=== PATIENT | male | born 1955 | race Asian ===

== ENCOUNTER 2017-10-16 16:55 | Inpatient (IN) | payer BC, OTHER ==
[~2017-10-16] VITALS: Ht 160 cm; Wt 63.5 kg
--- NOTE | 2017-10-16 18:12 | NUR ---
GN DISCHARGE NOTE: PT 62 Y/O MALE ADMITTED FROM [facility]150 HOLD FOR DTS,GD. PER HOLD PT OD O MEDICATIONS PT WAS DEPRESSED FOR PAST 2 MONTHS. UPON 1:1 ASSESSMENT PT A/0 X3, CALM, COOPERATIVE, DEPRESSED MOOD , UNKEPT, ADMIT SI WITH NO PLAN. PT SIGN CONTACT FOR SAFETY, DR DUMONT NOTIFIED WITH ADMITTING ORDER. VSS,BELONGING CHECKED FOR CONTRABAND WILL INDORSE TO INCOMING SHIFT RN FOR COMPLETE ADMISSION AND CONTINUATION OF CARE.
[2017-10-16] MEDS ORDERED: LOSA50TA21 PO (18:17)
[2017-10-16] MEDS ORDERED: EZET1TAB31 PO (18:17)
[2017-10-16] MEDS ORDERED: MIRT15TA7 PO (18:17)
[2017-10-16] MEDS ORDERED: ESCI10TA PO (18:17)
[2017-10-16] MEDS ORDERED: SITA100T PO (18:17)
[2017-10-16] MEDS ORDERED: MIRT30TA7 PO (18:17)
[2017-10-16] MEDS ORDERED: PIOG30TA10 PO (18:17)
[2017-10-16] MEDS ORDERED: DIAZ2TAB PO (18:17)
[2017-10-16 18:22] VITALS: BP 149/72
[2017-10-16] MEDS ORDERED: MULT1TAB73 PO (18:25)
[2017-10-16] MEDS ORDERED: CHOL100062 PO (18:25)
[2017-10-16] MEDS ORDERED: MAGNESIUM HYDROXIDE 30 ML UDC PO PRN (18:30)
[2017-10-16] MEDS ORDERED: ACETAMINOPHEN 325 MG TABLET PO PRN (18:30)
[2017-10-16] MEDS ORDERED: MAG HYDROX/AL HYDROX/SIMETH 30 ML UDC PO PRN (18:30)
[2017-10-16] MEDS ORDERED: DEXTROSE 50%-WATER 50 ML DISP.SYRIN IV PRN (20:00)
[2017-10-16 20:02] VITALS: BP 137/70
[2017-10-16 20:41] VITALS: BP 135/78
[2017-10-16] MEDS: BLOOD SUGAR DIAGNOSTIC 1 EACH STRIP IN SCH (21:04)
[2017-10-16] MEDS: INSULIN REGULAR, HUMAN 100 UNIT/ML 3 ML VIAL SQ PRN (21:07)
--- NOTE | 2017-10-16 22:49 | NUR ---
ADMISSION NOTES ADMITTED THIS 62Y/O MALE PATIENT ADMIT FROM [facility]/, PT IS PLACED ON 5150 HOLD FOR DTS, GD , PER HOLD PT. TOOK ALL HIS DEPRESSION MEDICATION, PT. WAS DEPRESSED FOR PAST 2 MONTHS, UPON FACE TO FACE ASSESSMENT PATIENT IS A&O X2,3 DEPRESSED ESILY AGITATED DISHELVED , PARANOID, COOPERTIVE ,DENIES ANY SI HI AT THIS TIME, PT. IS POOR HISTORIAN, POOR INSIGHT ,POOR JUDGEMENT , V/S WNL, NO ACUTE DISTRESS NOTED , SKIN ASSESSMENT DONE, MD AWARE AND NOTIFIED OF THE ADMISSION, ENCOURAGED PT. VERBALIZED ANY FEELING CONCERN TO STAFF, ORIENT TO UNIT POLICY, WILL CONTINUE TO MONITOR FOR Q15 SAFETY AND BEHAVIOR.
[2017-10-17] MEDS: TEMAZEPAM 7.5 MG CAPSULE PO PRN (00:35)
[2017-10-17] MEDS: LORAZEPAM 0.5 MG TABLET PO PRN (03:12)
--- NOTE | 2017-10-17 03:13 | NUR ---
RN GPS NOTES PT. C/O ANXIETY ATIVAN 0.5 MG PO PRN GIVEN PER PT. REQUEST , WILL CONTINUE TO MONITOR.
[2017-10-17 07:33] LABS: ALBUMIN 3.9 g/dL (3.4-5.0); BILIRUBIN,TOTAL 0.7 mg/dL (0.2-1.0); POTASSIUM 3.8 mmol/L (3.5-5.1); TOTAL PROTEIN, SERUM 7.5 g/dL (6.4-8.2)
[2017-10-17] MEDS: BLOOD SUGAR DIAGNOSTIC 1 EACH STRIP IN SCH ×4 (07:33→22:05)
[2017-10-17] MEDS: INSULIN REGULAR, HUMAN 100 UNIT/ML 3 ML VIAL SQ PRN ×4 (07:35→22:09)
[2017-10-17 07:43] LABS: THYROID STIMULATING HORMONE 0.683 uIU/mL (0.358-3.74)
--- NOTE | 2017-10-17 07:43 | NUR ---
RN GPS NOTES PT BS IS 163 IN AM / BUT PT. REFUESED TO TAKE COVERAGE INSULLIN , ENCOURAGED STILL REFUSED , PT. STATED MY BLOOD SUGAR IS LOW , I DON'T WANT TAKING INSULLIN ,
[2017-10-17 07:58] VITALS: BP 142/71
[2017-10-17] MEDS: LINAGLIPTIN 5 MG TABLET PO SCH (08:43)
[2017-10-17] MEDS: PIOGLITAZONE HCL 15 MG TABLET PO SCH (08:43)
[2017-10-17] MEDS: CHOLECALCIFEROL 1,000 UNIT TABLET (VIT D3) PO SCH (08:43)
[2017-10-17] MEDS: LOSARTAN POTASSIUM 50 MG TABLET PO SCH (08:44)
[2017-10-17] MEDS ORDERED: SIMVASTATIN PO SCH (09:00)
[2017-10-17] MEDS ORDERED: EZETIMIBE PO SCH (09:00)
[2017-10-17] MEDS ORDERED: POTASSIUM CHLORIDE 20 MEQ TAB.PRT.SR PO ONE (09:00)
--- NOTE | 2017-10-17 12:15 | NUR ---
[id number]: GAVE BLOOD SUGAR IS 170 MG/DL AND 3 UNITS OF REGULAR INSULIN
[2017-10-17 15:59] VITALS: BP 135/68
--- NOTE | 2017-10-17 16:21 | NUR ---
Initial Discharge Plan: Pt resides at home with his family at [address] [place] [address], [phone] [[phone]]. Per pt, he would like to return home upon discharge but his son, Donna ([phone]) does not approve of this plan. DAT will work with the patient, the family and the MD regarding appropriate discharge plans. SW will form a safe and proper discharge plan.
--- NOTE | 2017-10-17 16:22 | NUR ---
DAT spoke to the pt's son, Donna ([phone]) regarding future discharge plans.
--- NOTE | 2017-10-17 16:39 | NUR ---
[id number]: BLOOD SUGAR IS 195 MG/DL AND GAVE 3 UNITS OF REGULAR INSULIN.
[2017-10-17] MEDS: ESCITALOPRAM OXALATE (10 MG) 10 MG TABLET PO SCH (17:50)
[2017-10-17 19:55] VITALS: BP 110/65
[2017-10-17] MEDS: EZETIMIBE 10 MG TABLET PO SCH (21:23)
[2017-10-17] MEDS: SIMVASTATIN 40 MG TABLET PO SCH (21:23)
[2017-10-17] MEDS: MIRTAZAPINE 15 MG TABLET PO SCH (21:23)
[2017-10-18] MEDS: LORAZEPAM 0.5 MG TABLET PO PRN ×2 (07:24→13:43)
[2017-10-18] MEDS: BLOOD SUGAR DIAGNOSTIC 1 EACH STRIP IN SCH ×4 (07:35→22:00)
[2017-10-18 08:00] VITALS: BP 138/67
[2017-10-18] MEDS: ESCITALOPRAM OXALATE (10 MG) 10 MG TABLET PO SCH (09:01)
[2017-10-18] MEDS: LOSARTAN POTASSIUM 50 MG TABLET PO SCH (09:02)
[2017-10-18] MEDS: LINAGLIPTIN 5 MG TABLET PO SCH (09:02)
[2017-10-18] MEDS: CHOLECALCIFEROL 1,000 UNIT TABLET (VIT D3) PO SCH (09:02)
[2017-10-18] MEDS: PIOGLITAZONE HCL 15 MG TABLET PO SCH (09:02)
[2017-10-18] MEDS: INSULIN REGULAR, HUMAN 100 UNIT/ML 3 ML VIAL SQ PRN ×2 (09:17→12:34)
[2017-10-18 16:00] VITALS: BP 113/58
[2017-10-18] MEDS: risperiDONE 0.25 MG TABLET PO SCH (17:05)
[2017-10-18 20:11] VITALS: BP 105/52
[2017-10-18] MEDS: SIMVASTATIN 40 MG TABLET PO SCH (21:49)
[2017-10-18] MEDS: MIRTAZAPINE 15 MG TABLET PO SCH (21:49)
[2017-10-18] MEDS: TEMAZEPAM 7.5 MG CAPSULE PO PRN (21:50)
--- NOTE | 2017-10-18 21:50 | NUR ---
TEMAZEPAM 7.5 MG CAP PO GIVEN FOR SLEEP.
[2017-10-18] MEDS: EZETIMIBE 10 MG TABLET PO SCH (22:00)
--- NOTE | 2017-10-19 01:28 | NUR ---
10/18/2017 @ 2200, PATIENT REFUSED ACCUCHECK LARRY, STATED, " WE CAN HAVE IT DONE JOSIAS. MORNING."
--- NOTE | 2017-10-19 01:30 | NUR ---
10/18/17, AT 2200 PATIENT REFUSED ZETIA 10 MG TAB DOSE FOR TONIGHT.
[2017-10-19] MEDS: BLOOD SUGAR DIAGNOSTIC 1 EACH STRIP IN SCH ×4 (07:56→22:31)
[2017-10-19 08:00] VITALS: BP 133/66
[2017-10-19] MEDS: INSULIN REGULAR, HUMAN 100 UNIT/ML 3 ML VIAL SQ PRN ×2 (08:43→13:01)
[2017-10-19] MEDS: PIOGLITAZONE HCL 15 MG TABLET PO SCH (08:44)
[2017-10-19] MEDS: risperiDONE 0.25 MG TABLET PO SCH ×2 (08:44→16:42)
[2017-10-19] MEDS: ESCITALOPRAM OXALATE (10 MG) 10 MG TABLET PO SCH (08:44)
[2017-10-19] MEDS: LINAGLIPTIN 5 MG TABLET PO SCH (08:44)
[2017-10-19] MEDS: CHOLECALCIFEROL 1,000 UNIT TABLET (VIT D3) PO SCH (08:44)
[2017-10-19] MEDS: LORAZEPAM 0.5 MG TABLET PO PRN ×2 (08:44→15:12)
[2017-10-19] MEDS: LOSARTAN POTASSIUM 50 MG TABLET PO SCH (08:45)
--- NOTE | 2017-10-19 08:45 | NUR ---
NURSING NOTE PT IS VERY ANXIOUS, RESTLESS, PACING THE HALLWAY, REQUESTING ATIVAN TO CALM PT DOWN, ADMINISTERED ATIVAN 0.5MG PO PER PT REQUEST, VS STABLE, WILL CONTINUE TO MONITOR FOR SAFETY AND BEHAVIOR.
--- NOTE | 2017-10-19 10:38 | NUR ---
NURSING NOTE PT C/O SHARP NEEDLE TYPE PAIN ON THE LEFT SIDE WHERE THE HEART IS LOCATED, PT STATES THE PAIN DOES NOT RADIATE ANYWHERE AND IT COMES AND GOES, PER PT THE PAIN STARTED THIS MORNING. DR. PATIÑO HAS BEEN NOTIFIED. PER DR. PATIÑO MONITOR PT FOR PAIN AND HE WILL ASSESS THE PT WHEN HE GETS TO THE UNIT. VS STABLE, WILL CONTINUE TO MONITOR.
--- NOTE | 2017-10-19 11:14 | NUR ---
SW called the pt's unemployment insurance hearing officer, Dayana ([phone]) and received some potential placement options.
--- NOTE | 2017-10-19 11:16 | NUR ---
DAT faxed an insurance review for the pt to Christie Regalado (fax: [phone]).
--- NOTE | 2017-10-19 12:16 | NUR ---
SW spoke to 3 placement options for the pt for when he discharges. [place] at [facility]
--- NOTE | 2017-10-19 15:15 | NUR ---
NURSING NOTE PT REQUESTING ATIVAN, ANXIOUS, RESTLESS, PACING UP AND DOWN THE HALLWAY, STATING "I CAN'T GET OUT OF MY HEAD". ADMINISTERED ATIVAN 0.5MG PO, VS STABLE, WILL CONTINUE TO MONITOR FOR SAFETY AND BEHAVIOR.
[2017-10-19 15:56] VITALS: BP 121/73
--- NOTE | 2017-10-19 17:00 | NUR ---
NURSING NOTE BLOOD GLUCOSE 111 MG/DL, NO INSULIN COVERAGE NEEDED. WILL CONTINUE TO MONITOR.
[2017-10-19 20:26] VITALS: BP 111/64
[2017-10-19] MEDS: SIMVASTATIN 40 MG TABLET PO SCH (21:46)
[2017-10-19] MEDS: MIRTAZAPINE 15 MG TABLET PO SCH (21:46)
[2017-10-19] MEDS: EZETIMIBE 10 MG TABLET PO SCH (21:46)
[2017-10-20] MEDS: LORAZEPAM 0.5 MG TABLET PO PRN ×2 (06:10→13:32)
[2017-10-20 08:18] VITALS: BP 103/52
[2017-10-20] MEDS: LINAGLIPTIN 5 MG TABLET PO SCH (08:24)
[2017-10-20] MEDS: ESCITALOPRAM OXALATE (10 MG) 10 MG TABLET PO SCH (08:24)
[2017-10-20] MEDS: risperiDONE 0.25 MG TABLET PO SCH ×2 (08:24→16:44)
[2017-10-20] MEDS: CHOLECALCIFEROL 1,000 UNIT TABLET (VIT D3) PO SCH (08:24)
[2017-10-20] MEDS: PIOGLITAZONE HCL 15 MG TABLET PO SCH (08:24)
[2017-10-20] MEDS: BLOOD SUGAR DIAGNOSTIC 1 EACH STRIP IN SCH ×4 (08:25→21:51)
--- NOTE | 2017-10-20 09:31 | NUR ---
SW spoke to Christie ([phone]) from [facility] and discussed the pt being covered until October 23.
--- NOTE | 2017-10-20 09:57 | NUR ---
DAT spoke to the pt's son, Donna ([phone]), and informed him regarding updates regarding the pt. The son stated that the family will not be taking him back until he is better and at a facility. The family is willing to pay out of pocket as a last resort.
[2017-10-20] MEDS: INSULIN REGULAR, HUMAN 100 UNIT/ML 3 ML VIAL SQ PRN ×3 (10:40→21:53)
[2017-10-20] MEDS: LOSARTAN POTASSIUM 50 MG TABLET PO SCH (10:49)
[2017-10-20 16:00] VITALS: BP 119/69
[2017-10-20] MEDS: DIVALPROEX SODIUM 125 MG TABLET.DR PO SCH (16:44)
[2017-10-20 20:26] VITALS: BP 107/62
[2017-10-20] MEDS: MIRTAZAPINE 15 MG TABLET PO SCH (21:51)
[2017-10-20] MEDS: SIMVASTATIN 40 MG TABLET PO SCH (21:51)
[2017-10-20] MEDS: EZETIMIBE 10 MG TABLET PO SCH (21:51)
[2017-10-20] MEDS: TEMAZEPAM 7.5 MG CAPSULE PO PRN (21:51)
[2017-10-21] MEDS: BLOOD SUGAR DIAGNOSTIC 1 EACH STRIP IN SCH ×4 (07:49→21:39)
[2017-10-21] MEDS: INSULIN REGULAR, HUMAN 100 UNIT/ML 3 ML VIAL SQ PRN ×4 (07:52→21:41)
[2017-10-21 08:00] VITALS: BP 101/66
[2017-10-21] MEDS: risperiDONE 0.25 MG TABLET PO SCH ×2 (08:49→17:07)
[2017-10-21] MEDS: DIVALPROEX SODIUM 125 MG TABLET.DR PO SCH ×2 (08:49→21:39)
[2017-10-21] MEDS: LORAZEPAM 0.5 MG TABLET PO PRN ×2 (08:50→14:50)
[2017-10-21] MEDS: LINAGLIPTIN 5 MG TABLET PO SCH (08:50)
[2017-10-21] MEDS: PIOGLITAZONE HCL 15 MG TABLET PO SCH (08:51)
[2017-10-21] MEDS: CHOLECALCIFEROL 1,000 UNIT TABLET (VIT D3) PO SCH (08:51)
[2017-10-21] MEDS: ESCITALOPRAM OXALATE (10 MG) 10 MG TABLET PO SCH (08:54)
[2017-10-21] MEDS: LOSARTAN POTASSIUM 50 MG TABLET PO SCH (08:55)
[2017-10-21] MEDS: MULTIVITAMINS,THERAGRAN 1 UDTAB TABLET PO SCH (08:58)
--- NOTE | 2017-10-21 14:50 | NUR ---
RN NOTES ADMINISTERED ATIVAN 0. 5 MG PO PRN FOR ANXIETY, PER PATIENT REQUEST, V/S TAKEN BP- 133/70, P-100, CONTINUED MONITORING.
[2017-10-21 15:52] VITALS: BP 133/70
[2017-10-21 19:51] VITALS: BP 114/59
[2017-10-21] MEDS: MIRTAZAPINE 15 MG TABLET PO SCH (21:41)
[2017-10-21] MEDS: SIMVASTATIN 40 MG TABLET PO SCH (21:41)
[2017-10-21] MEDS: EZETIMIBE 10 MG TABLET PO SCH (21:42)
[2017-10-22] MEDS: LORAZEPAM 0.5 MG TABLET PO PRN (07:08)
[2017-10-22] MEDS: BLOOD SUGAR DIAGNOSTIC 1 EACH STRIP IN SCH ×4 (07:56→22:03)
[2017-10-22 08:00] VITALS: BP 123/65
[2017-10-22] MEDS: risperiDONE 0.25 MG TABLET PO SCH ×2 (08:35→17:03)
[2017-10-22] MEDS: ESCITALOPRAM OXALATE (10 MG) 10 MG TABLET PO SCH (08:35)
[2017-10-22] MEDS: LINAGLIPTIN 5 MG TABLET PO SCH (08:35)
[2017-10-22] MEDS: CHOLECALCIFEROL 1,000 UNIT TABLET (VIT D3) PO SCH (08:36)
[2017-10-22] MEDS: DIVALPROEX SODIUM 125 MG TABLET.DR PO SCH ×2 (08:36→22:03)
[2017-10-22] MEDS: LOSARTAN POTASSIUM 50 MG TABLET PO SCH (08:36)
[2017-10-22] MEDS: PIOGLITAZONE HCL 15 MG TABLET PO SCH (08:36)
[2017-10-22] MEDS: MULTIVITAMINS,THERAGRAN 1 UDTAB TABLET PO SCH (08:36)
[2017-10-22] MEDS: INSULIN REGULAR, HUMAN 100 UNIT/ML 3 ML VIAL SQ PRN ×3 (10:05→22:04)
[2017-10-22 16:08] VITALS: BP 104/60
[2017-10-22 20:00] VITALS: BP 106/55
[2017-10-22] MEDS: MIRTAZAPINE 15 MG TABLET PO SCH (22:03)
[2017-10-22] MEDS: EZETIMIBE 10 MG TABLET PO SCH (22:03)
[2017-10-22] MEDS: SIMVASTATIN 40 MG TABLET PO SCH (22:03)
[2017-10-23 08:00] VITALS: BP 119/68
[2017-10-23] MEDS: BLOOD SUGAR DIAGNOSTIC 1 EACH STRIP IN SCH ×4 (08:11→21:14)
[2017-10-23] MEDS: INSULIN REGULAR, HUMAN 100 UNIT/ML 3 ML VIAL SQ PRN ×2 (08:25→13:14)
[2017-10-23] MEDS: risperiDONE 0.25 MG TABLET PO SCH ×2 (08:26→16:16)
[2017-10-23] MEDS: LINAGLIPTIN 5 MG TABLET PO SCH (08:26)
[2017-10-23] MEDS: CHOLECALCIFEROL 1,000 UNIT TABLET (VIT D3) PO SCH (08:26)
[2017-10-23] MEDS: MULTIVITAMINS,THERAGRAN 1 UDTAB TABLET PO SCH (08:26)
[2017-10-23] MEDS: DIVALPROEX SODIUM 125 MG TABLET.DR PO SCH ×2 (08:27→21:17)
[2017-10-23] MEDS: ESCITALOPRAM OXALATE (10 MG) 10 MG TABLET PO SCH (08:27)
[2017-10-23] MEDS: PIOGLITAZONE HCL 15 MG TABLET PO SCH (08:28)
[2017-10-23] MEDS: LOSARTAN POTASSIUM 50 MG TABLET PO SCH (08:29)
[2017-10-23] MEDS: LORAZEPAM 0.5 MG TABLET PO PRN (09:20)
--- NOTE | 2017-10-23 09:30 | NUR ---
GPS/RN-NOTES PATIENT REQUESTING ATIVAN STATED" I'M ANXIOUS PLEASE GIVE ME ATIVAN". ATIVAN 0.5MG P.O GIVEN PRN ORDER. WILL CONT. MONITORING FOR SAFETY AND BEHAVIOR.
--- NOTE | 2017-10-23 10:30 | NUR ---
GPS/RN-NOTES PATIENT PARTICIPATING IN THE ACTIVITY GROUP. CALM NO ACUTE DISTRESS NOTED.
[2017-10-23 16:00] VITALS: BP 95/58
[2017-10-23 19:54] VITALS: BP 109/59
[2017-10-23] MEDS: SIMVASTATIN 40 MG TABLET PO SCH (21:14)
[2017-10-23] MEDS: EZETIMIBE 10 MG TABLET PO SCH (21:14)
[2017-10-23] MEDS: MIRTAZAPINE 15 MG TABLET PO SCH (21:14)
[2017-10-24 08:00] VITALS: BP 133/69
[2017-10-24] MEDS: LINAGLIPTIN 5 MG TABLET PO SCH (08:32)
[2017-10-24] MEDS: MULTIVITAMINS,THERAGRAN 1 UDTAB TABLET PO SCH (08:33)
[2017-10-24] MEDS: DIVALPROEX SODIUM 125 MG TABLET.DR PO SCH ×2 (08:33→21:20)
[2017-10-24] MEDS: LOSARTAN POTASSIUM 50 MG TABLET PO SCH (08:33)
[2017-10-24] MEDS: PIOGLITAZONE HCL 15 MG TABLET PO SCH (08:33)
[2017-10-24] MEDS: CHOLECALCIFEROL 1,000 UNIT TABLET (VIT D3) PO SCH (08:33)
[2017-10-24] MEDS: risperiDONE 0.25 MG TABLET PO SCH ×2 (08:33→16:32)
[2017-10-24] MEDS: BLOOD SUGAR DIAGNOSTIC 1 EACH STRIP IN SCH ×4 (08:34→22:10)
[2017-10-24] MEDS: ESCITALOPRAM OXALATE (10 MG) 10 MG TABLET PO SCH (08:36)
[2017-10-24] MEDS: hydrOXYzine PAMOATE 25 MG CAPSULE PO PRN (08:40)
[2017-10-24] MEDS: INSULIN REGULAR, HUMAN 100 UNIT/ML 3 ML VIAL SQ PRN ×2 (08:56→13:50)
--- NOTE | 2017-10-24 09:00 | NUR ---
GPS/RN BS 159, ADMINISTERED 2 UNITS REGULAR INSULIN PER SLIDING SCALE.
--- NOTE | 2017-10-24 09:11 | NUR ---
DAT called the pt's psychiatrist, Dr. Todd , and left a voicemail. DAT also called [facility] and left a voicemail about working with the family and finding an assisted living for the pt.
--- NOTE | 2017-10-24 09:11 | NUR ---
DAT spoke to the pt's son, Donna ([phone]), and let him know that his father is not covered today so he would have to get picked up today and discharged home.
--- NOTE | 2017-10-24 13:10 | NUR ---
SW talked to the pt who stated that he is worried about going home because he thinks that environment will cause him to be suicidal again. He stated that he is currently not having any suicidal thoughts.
--- NOTE | 2017-10-24 13:20 | NUR ---
DAT spoke to Dr. Maurer as well as her supervisor farm equipment maintenance, Alysa Heard ([phone]) and discussed boarding care as an option for the patient. The team decided that he would go home with his son and then go to the boarding care once that is set up.
--- NOTE | 2017-10-24 13:21 | NUR ---
SW spoke to the pt's son, Donna ([phone]), and discussed having him pick up man his father today at 5pm and that [facility] care is being worked towards. [place] agreed but wanted the SW to speak to the pt's outside psychiatrist.
--- NOTE | 2017-10-24 13:22 | NUR ---
SW called the pt's psychiatrist, Dr. Todd , and informed her about the board and care plan. Dr. Todd did not approve of this plan and wants the pt to be placed in a hospital or facility that will tend to his psychiatric needs.
--- NOTE | 2017-10-24 13:24 | NUR ---
DAT called the pt's medical insurance coding specialist, Christie ([phone]), who transferred the SW to the scientific informatics leader on the case who just came back from vacation. DAT called Amanda Holcomb ([phone]) and left a voicemail asking to discuss this pt.
--- NOTE | 2017-10-24 14:25 | NUR ---
DAT called Aamnda Holcomb ([phone]), the pt's family service caseworker, and left a voicemail stating new urgent updates about the patient such as his suicidal ideations and hallucinations. DAT is waiting for the family service caseworker to call back.
[2017-10-24 16:00] VITALS: BP 120/70
--- NOTE | 2017-10-24 17:30 | NUR ---
GPS/RN PATIENT REFUSED BS CHECK, WILL CONTINUE TO MONITOR.
[2017-10-24 19:41] VITALS: BP 94/57
[2017-10-24] MEDS: EZETIMIBE 10 MG TABLET PO SCH (21:20)
[2017-10-24] MEDS: MIRTAZAPINE 15 MG TABLET PO SCH (21:20)
[2017-10-24] MEDS: SIMVASTATIN 40 MG TABLET PO SCH (21:21)
[2017-10-25 08:00] VITALS: BP 120/70
[2017-10-25] MEDS: risperiDONE 0.25 MG TABLET PO SCH ×2 (08:52→16:21)
[2017-10-25] MEDS: CHOLECALCIFEROL 1,000 UNIT TABLET (VIT D3) PO SCH (08:53)
[2017-10-25] MEDS: PIOGLITAZONE HCL 15 MG TABLET PO SCH (08:53)
[2017-10-25] MEDS: ESCITALOPRAM OXALATE (10 MG) 10 MG TABLET PO SCH (08:53)
[2017-10-25] MEDS: LOSARTAN POTASSIUM 50 MG TABLET PO SCH (08:53)
[2017-10-25] MEDS: LINAGLIPTIN 5 MG TABLET PO SCH (08:53)
[2017-10-25] MEDS: MULTIVITAMINS,THERAGRAN 1 UDTAB TABLET PO SCH (08:53)
[2017-10-25] MEDS: DIVALPROEX SODIUM 125 MG TABLET.DR PO SCH (08:53)
[2017-10-25] MEDS: BLOOD SUGAR DIAGNOSTIC 1 EACH STRIP IN SCH ×3 (09:00→16:52)
[2017-10-25] MEDS: INSULIN REGULAR, HUMAN 100 UNIT/ML 3 ML VIAL SQ PRN ×2 (09:22→13:11)
[2017-10-25] MEDS: hydrOXYzine PAMOATE 25 MG CAPSULE PO PRN (09:25)
--- NOTE | 2017-10-25 12:41 | NUR ---
DAT called Amanda Holcomb ([phone]), the pt's test case developer, and left a voicemail.
--- NOTE | 2017-10-25 12:49 | NUR ---
SW spoke to the pt's son, Donna ([phone]), and discussed having him picking supervisor his father today at 5pm and that boarding care is being worked towards.
[2017-10-25 16:00] VITALS: BP 104/60
--- NOTE | 2017-10-25 16:33 | NUR ---
Discharge Note: Pt discharged and went back home to [address] [place] [address] ([phone]) with his son, Donna ([phone]) around 5:00pm. Pt denied suicidal/homicidal ideations and denied visual/auditory hallucinations. Pts mood and affect were somewhat distressed yet cooperative at discharge. He was agreeable to this placement and pts son also agreed to this discharge plan temporarily because he is going to look for a board and care that the provided referrals to. Pt was given board and care referrals such contacting [facility] at , [facility] at , and [facility] at . Pt will be under the care of his outside psychiatrist Dr. Todd located at [address] [place] [address] and his medical doctor Dr. Abilio Walsh from [facility] located at [facility], [place] [address].
--- NOTE | 2017-10-25 17:08 | NUR ---
DISCHARGE NOTE: PATIENT LEFT UNIT AT 1705 WITH FAMILY. PATIENT IS MEDICALLY CLEAR, ALERT AND ORIENTED X 3, V/S STABLE, AND DENIES SI/HI DURING TIME OF DISCHARGE. NICHOLE ORDERED DISCHARGE, D/C HOLD, AND GAVE PRESCRIPTION FOR PATIENT. MACHINED PARTS METAL SPRAYER MADE AWARE OF DISCHARGE AND AGREES. PATIENT LEFT WITH BELONGINGS, SIGNED EXIT CARE PAPERS, AND EXPLAINED EXIT CARE TO FAMILY. PATIENT LEFT WITH SKIN INTACT.
== END 2017-10-25 17:05 | disposition home or self-care (01) | DRG 885 ==
LOC: GPS 17:33
PROVIDERS: ADMIT Psychiatry & Neurology Psychiatry; ATTEND Nurse Practitioner Acute Care
DX: F33.3 Major depressive disorder, recurrent, severe with psychotic symptoms (principal); E11.65 Type 2 diabetes mellitus with hyperglycemia; F23 Brief psychotic disorder; E87.6 Hypokalemia; F41.9 Anxiety disorder, unspecified; I10 Essential (primary) hypertension; E78.5 Hyperlipidemia, unspecified; H40.9 Unspecified glaucoma
CPT/HCPCS: 36415; 80053-TC; 80061-TC; 80164-TC; 82962-TC; 84443-TC; 87081-TC; J1815; Q0177